=== PATIENT | male | born 1990 | race African-American/Black ===

== ENCOUNTER 2016-12-24 22:51 | Emergency (ER) | payer MEDICAID ==
[~2016-12-24] VITALS: Ht 177.8 cm; Wt 99.8 kg
[2016-12-24] MEDS ORDERED: LITHIUM CARBON150 MG ORAL (23:00)
[2016-12-24] MEDS ORDERED: ZYPREXA2.5 MG ORAL (23:00)
[2016-12-24] MEDS ORDERED: HALOPERIDOL0.5 MG ORAL (23:00)
[2016-12-25 00:07] LABS: APPEARANCE,URINE CLEAR; KETONES,URINE NEGATIVE (NEGATIVE); LEUKOCYTE ESTERASE ,URINE NEGATIVE (NEGATIVE); NITRITE,URINE NEGATIVE (NEGATIVE); PH,URINE 5 (4.5-8.0); PROTEIN,URINE NEGATIVE (NEGATIVE); UROBILINOGEN,URINE NORMAL MG/DL (0.0-1.0)
[2016-12-25 00:09] LABS: BASOPHILS % (AUTO) 0.8 % (0.0-2.0); EOSINOPHILS % (AUTO) 0.5 % (0.0-3.0); LYMPHOCYTES % (AUTO) 10.2 % (20.0-45.0); MEAN CORPUSCULAR HGB CONC 33.8 G/DL (32.0-36.0); MEAN CORPUSCULAR VOLUME 86 FL (80-99); MEAN PLATELET VOLUME 5.6 FL (6.5-10.1); MONOCYTES % (AUTO) 6.4 % (1.0-10.0); NEUTROPHILS % (AUTO) 82.2 % (45.0-75.0); PLATELET COUNT 222 K/UL (150-450); RED BLOOD COUNT 4.03 M/UL (4.70-6.10); RED CELL DISTRIBUTION WIDTH 16.2 % (11.6-14.8); WHITE BLOOD COUNT 13.4 K/UL (4.8-10.8)
[2016-12-25 00:22] LABS: ACETAMINOPHEN < 10 ug/mL (10-30); ALANINE AMINOTRANSFERASE 15 U/L (3-41); ALBUMIN/GLOBULIN RATIO 3.5 (1.0-2.7); ALCOHOL < 10 mg/dL; ANION GAP 12 (5-15); ASPARTATE AMINO TRANSFERASE 80 U/L (5-40); CALCIUM 9.4 mg/dL (8.6-10.2); CARBON DIOXIDE 27 mEQ/L (20-30); CHLORIDE 100 mEQ/L (98-107); GLOMERULAR FILTRATION RATE > 60 mL/min (>60); HEMOLYSIS 4; POTASSIUM 3.3 mEQ/L (3.4-4.9); SODIUM 139 mEQ/L (135-145); TOTAL PROTEIN 6.4 g/dL (6.6-8.7)
[2016-12-25 01:24] VITALS: BP 127/84
[2016-12-25] MEDS ORDERED: ZYPREXA5 MG ORAL (05:21)
--- NOTE | 2016-12-25 05:21 | Emergency Room Report ---
History of Present Illness General Chief Complaint: Behavioral Complaint Source: Patient, Family Member, EMS Present Illness HPI Is a 28-year-old male with a history of schizoaffective disorder. He was just discharged from a psych facility. He was started on Haldol and Cogentin. According to his mom his been acting abnormal today. He appear to be in pain with in nature. He called 911. Initially patient sleepy and not answering much. Denies any other complaint. No suicidal thought homicidal thought. Denies any drug use. Allergies: Coded Allergies: No Known Allergies (Unverified , 12/24/16) Patient History Past Medical History: see triage record, old chart reviewed, psych hx Past Surgical History: other Family History: none Social History: tobacco use Immunizations: other Reviewed Nursing Documentation: PMH: Agreed, PSxH: Agreed Nursing Documentation-PMH History Of Psychiatric Problem: Yes Review of Systems ENT: Denies: sore throat Cardiovascular: Denies: chest pain, palpitations Gastrointestinal/Abdominal: Denies: nausea, vomiting, diarrhea Musculoskeletal: Denies: back problems Skin: Denies: rash Neurological: Denies: SHARMA, seizures All Other Systems: negative except mentioned in HPI Physical Exam Vital Signs Date Time Temp Pulse Resp B/P (MAP) Pulse Ox O2 Delivery O2 Flow Rate FiO2 12/24/16 22:55 97.9 94 18 134/81 99 Room Air vitals normal Sp02 EP Interpretation: reviewed, normal General Appearance: alert/responsive, no apparent distress, non-toxic Head: normocephalic, atraumatic Eyes: PERRL, EOMI ENT: oropharynx normal Neck: supple/symm/no masses Respiratory: effort normal, no rhonchi, no wheezing Cardiovascular: no murmur, gallop, rub Gastrointestinal: non-tender, no mass, non-distended, no rebound/guarding, normal bowel sounds Musculoskeletal: gait & station normal Neurologic: oriented x3, sensory intact, motor strength/tone normal Skin: no rash, normal palpation Medical Decision Making Diagnostic Impression: Primary Impression: Acute dystonic reaction due to drugs ER Course Patient with a dystonic reaction to Haldol. He slept for several hours is now awake. Mom said he tolerate Zyprexa much better. He walking around without issue. We'll discharge in the morning at 6 AM when mom picked him up. No criteria for 5150. Lab Results Impression labs normal Last Vital Signs Date Time Temp Pulse Resp B/P (MAP) Pulse Ox O2 Delivery O2 Flow Rate FiO2 12/24/16 22:55 97.9 94 18 134/81 99 Room Air Status: improved Disposition: HOME, SELF-CARE Condition: Stable Scripts Olanzapine* (ZYPREXA*) 5 Mg Tablet 5 MG ORAL DAILY, #30 TAB Prov: JEREMY ANTONIO M.D. 12/25/16 Referrals: NOT CHOSEN IPA/,REFERRING (PCP) Additional Instructions: Followup with your DrWinnie in 2-3 days. Return if symptom worsen. Stop the Haldol. JEREMY ANTONIO M.D. Dec 25, 2016 05:21
[2016-12-25 06:39] VITALS: BP 131/80
[2016-12-25 08:28] VITALS: BP 106/68
[2016-12-25 09:23] VITALS: BP 116/72
[2016-12-25] MEDS ORDERED: ACETAMINOPHEN-1 EAC1 ORAL (10:12)
== END 2016-12-25 10:15 | disposition home or self-care (01) ==
LOC: EDBD 22:51 → EMR 23:04
DX: T43.4X5A Adverse effect of butyrophenone and thiothixene neuroleptics, initial encounter (principal); X58.XXXA Exposure to other specified factors, initial encounter; Y93.9 Activity, unspecified; Y92.9 Unspecified place or not applicable; F25.9 Schizoaffective disorder, unspecified
CPT/HCPCS: 36415; 80053; 80300; 80329; 81003; 85025; 99283